=== PATIENT | male | born 1990 | race Two or more races ===

== ENCOUNTER 2022-04-29 07:55 | Emergency (ER) | payer OTHER, MEDICAID ==
[~2022-04-29] VITALS: Ht 182.9 cm; Wt 102.0 kg
[2022-04-29] MEDS ORDERED: KETOROLAC TROMETH 60MG/2ML VIAL IM ONE (08:30)
[2022-04-29 08:43] LABS: Urine WBC None Seen /hpf (0 - 3)
[2022-04-29 08:51] LABS: Basophils # (auto) 0 10 ^3/uL (0-0.2); Basophils % (auto) 0.3 % (0.0-2.0); Eosinophils # (auto) 0 10 ^3/uL (0-0.8); Eosinophils % (auto) 0.3 % (0.0-7.0); Hematocrit 48.3 % (41.0-53.0); Hemoglobin 16.6 g/dL (13.5-17.5); Lymphocytes # (auto) 0.4 10 ^3/uL (0.4-5.4); Lymphocytes % (auto) 2.8 % (10.0-50.0); Mean Corpuscular Hemoglobin 30.9 pg (28.0-32.0); Mean Corpuscular Hgb Conc. 34.5 g/dL (32.0-36.0); Mean Corpuscular Volume 89.5 fL (80.0-100.0); Monocytes # (auto) 0.5 10 ^3/uL (0-1.3); Monocytes % (auto) 3.2 % (0.0-12.0); Neutrophils # (auto) 13.9 10 ^3/uL (1.6-8.6); Neutrophils % (auto) 93.4 % (37.0-80.0); Red Blood Cells 5.39 10^6/uL (4.5-5.90); Red Cell Distribution Width 12.9 % (11.8-14.3); White Blood Cell 14.9 10^3/uL (4.4-10.8)
[2022-04-29 08:57] LABS: Urine Bacteria NONE SEEN /hpf (None Seen); Urine Blood Negative /uL (Negative); Urine Mucus MANY (None Seen); Urine Specific Gravity 1.033 (1.001-1.035)
[2022-04-29 09:04] LABS: Albumin 5.1 g/dL (3.4-5.0); Potassium 4.7 mmol/L (3.5-5.1)
[2022-04-29 09:07] LABS: BUN/Creatinine Ratio 13.4; Bilirubin, Total 0.8 mg/dL (0.2-1.0); Total Protein 8.6 g/dL (6.4-8.2)
[2022-04-29 14:36] VITALS: BP 127/84
== END 2022-04-29 14:38 | disposition home or self-care (01) ==
LOC: ER 07:55
DX: R10.12 Left upper quadrant pain (principal); R11.2 Nausea with vomiting, unspecified; R19.7 Diarrhea, unspecified
CPT/HCPCS: 36415; 74176; 80053; 81001; 85025; 93005; 96372; 99285; J1885